=== PATIENT | female | born 1935 | race Caucasian/White ===

== ENCOUNTER 2019-09-12 11:19 | Outpatient (CLI) | payer MEDICARE, SELFPAY ==
--- NOTE | ~2019-09-12 | XR_ITS ---
XR lumbar spine min 4V DATE: 09/12/2019 11:42 INDICATION: Low back pain TECHNIQUE: AP, lateral, bilateral oblique views, coned lateral lumbosacral view COMPARISON: None FINDINGS: There is mild to moderate rotatory levoscoliosis of the lumbar spine. There is severe degenerative disc disease at L2-3, with minimal retrolisthesis There is severe degenerative disc disease at L5-S1. There is moderate degenerative disc disease at L3-4 and L4-5. There is grade 1 anterolisthesis at L3-4 and L4-5. No fracture or bone destruction or spondylolisthesis is evident. There is prominent degenerative brito ge at the apophyseal joints of the lumbar and lumbosacral spine. The sacroiliac joints are unremarkable. There is a very prominent amount fecal material throughout the rectum and colon. IMPRESSION: Rotatory levoscoliosis of the lumbar spine Multilevel degenerative disc disease Reviewed, dictated and finalized at location A.
--- NOTE | ~2019-09-12 | XR_ITS ---
XR hip BI 2V w AP pelvis DATE: 09/12/2019 11:42 INDICATION: Right hip pain. No injury. TECHNIQUE: AP pelvis. AP and lateral views of each hip. COMPARISON: None FINDINGS: No pelvic fracture or bone destruction. The pubic symphysis and sacroiliac joints are intac t. No fracture, dislocation, avascular necrosis or bone destruction of either hip is detected. Hip joint spaces are symmetric and relatively preserved. There is bilateral of fecal material within the colon. IMPRESSION: No significant abnormality of the hips Reviewed, dictated and finalized at location A.
== END 2019-09-12 11:20 | disposition home or self-care (01) ==
PROVIDERS: PCP Family Medicine; Visit Provider Family Medicine
DX: G89.29 Other chronic pain (principal); M25.551 Pain in right hip; M25.552 Pain in left hip; M54.5 Low back pain; M41.86 Other forms of scoliosis, lumbar region
CPT/HCPCS: 72110; 73521

== ENCOUNTER 2019-10-30 11:00 | Outpatient (RCR) | payer MEDICARE, SELFPAY ==
--- NOTE | 2019-10-09 15:48 | PTOPEVAL ---
PHYSICAL THERAPY EVALUATION AND PLAN OF CARE 10-09-2019 The PT evaluation was completed for the diagnosis of back and R hip pain. Her plan of treatment is scheduled for 2x/week for 3 weeks. Thank you for referring Mrs. Fontanez to [facility]. Please review, sign, date and return this plan of care [facility]. I agree with and certify that the following plan of care is medically necessary. Referring Physician Date Attending Provider: Michael Martinez MD *PT Outpatient Evaluation Start: 10/09/19 14:45 Document 10/09/19 14:35 BEE (Rec: 10/09/19 15:48 BEE [id number]) Therapy Assessment Status Assessment Status Assessment Status Evaluation Outpatient Past Medical History Past Medical History Source of Past Medical History Patient Neurological History Hx Other Neurological Disorders Yes: vertigo- get up out bed too fast, turn head too fast Cardiovascular History Hx Hypercholesterolemia Yes: meds Hx Other Cardiac Disorders Yes: aortic valve replacement Respiratory History Hx Respiratory Disorders No Significant History Gastrointestinal History Hx Other Gastrointestinal Disorders Yes: take meds for constipation Genitourinary History Hx Genitourinary Disorders No Significant History Musculoskeletal History Hx Back Pain Yes: injections 2016- pain Hx Orthopedic Surgery Yes: B carpal tunnel surgery Reproductive History Hx Hysterectomy Yes Evaluation Information Problem Diagnosis low back pain and R hip pain Onset August 21 2019 Subjective Information gradual increase in pain, Query Text:As Reported By Patient/ without any recent injury; Family increase after lifting, yard work and more activity; Diagnostic Tests X-Rays For This Problem Yes: R hip-negative; lumbar- deg changes &rotary levoscoliosis Previous Treatments Previous Treatments For This Problem 2017 with injections, had PT for back; Prior Level of Function Activity Level (Last 3 Months) Occupation retired Activity of Daily Living Ability Independent Indoor/Home Mobility Independent Community Mobility Independent Stairs Ability Independent Functional Cognition (Planning, Shopping Independent , Taking Medications) Cooking Yes Cleaning Yes Laundry Yes Shopping Yes Driving Yes Home Setting Home Type House Living Situation With Spouse Mobility Assistive Devices (Used Last 3 None,Cane Months) Comment
--- NOTE | 2019-10-19 10:12 | PCPTNOTE ---
Patient called & cancelled scheduled appointment this date due to [ ]illness
--- NOTE | 2019-10-30 11:34 | PTOPEVAL ---
PHYSICAL THERAPY DISCHARGE 10-30-2019 has received 6 PT sessions, from October 08 to today, for the diagnosis of LBP. Compared to the initial evaluation: pain has decreased, is no longer having any back pain, and returned to doing all of her normal activities; strength of her hips and trunk have increased, but still has weakness of B hip abduction and extension motions; increased anterior hip flexibility B; has been educated on home exercise program, correct body mechanics and lifting. All of the goals were achieved, therefore, she will be discharged from PT at this time. Thank you for referring Jess Fontanez to [facility]. Please review, sign, date and return this discharge VITOR. I agree with and certify that the following plan of care is medically necessary. Referring Physician Date Attending Provider: Michael Martinez MD Document 10/30/19 11:02 BEE (Rec: 10/30/19 11:34 BEE [id number]) Subjective Information Jess reports: back feels Query Text:As Reported By Patient/ good, have been doing her Family exercises, has not been using the cane at all, is back to doing all of the usual things she does at home, feels like she is ready for discharge from therapy. Pain Assessment Timing of Pain Assessment Timing of Pain Assessment Assessment Pain Scale Pain Scale Used Numeric (1 - 10) Self Report Pain Assessment Right Hip(s) Reported Pain Level 0 Pain Frequency Chronic Pain Score Pain Score 0: Self Report Lower Extremity Range of Motion General Lower Extremity Range of Motion Gross Lower Extremity Range of Motion anterior hip -quad length with Comments supine and leg over edge of mat, knee flexion R 70'/L 75'; Lower Extremity Muscle Strength Testing General Lower Extremity Strength Gross Lower Extremity Strength recumbant stepper, level 2 resistance, 5 minutes for warm up with discussion of therapy ; - B UE lift: floor/waist 10# x 2 reps with correct technique ; -standing hip ext with 1 UE hold: R 10/ L 12 reps - side lying hip abduction: L to 0'/ R to 0' x 20 reps - supine bridge 10 reps, with butt barely clear the mat Gait Assessment Gait Assessment Ambulation Assistive Devices None Ambulation Destination In Corridor Ambulation Ability Independent Additional Ambulation Comments slight lateral motion of trunk to R and L with WB
== END 2019-11-06 14:28 | disposition home or self-care (01) ==
LOC: ANHPT 11:00
PROVIDERS: PCP Family Medicine; Visit Provider Orthopaedic Surgery
DX: M25.559 Pain in unspecified hip (principal)
CPT/HCPCS: 97110; 97161

== ENCOUNTER 2020-04-01 09:26 | Outpatient (CLI) | payer MEDICARE, SELFPAY ==
--- NOTE | ~2020-04-01 | MM_ITS ---
EXAMINATION: MM screening diandra BI w guerda HISTORY: Screening TECHNIQUE: Craniocaudal and mediolateral oblique 3-D tomosynthesis images were obtained and synthetic 2-D images were generated. CAD analysis was submitted and interpreted. COMPARISON: Breast composed of scattered areas of fibroglandular density. BREAST PARENCHYMAL COMPOSITION: Breast composed of scattered areas of fibroglandular density. FINDINGS: There is no evidence of suspicious mass, calcification, or architectural distortion to sugg est malignancy in either breast. There has been no suspicious interval change. IMPRESSION: 1. No mammographic evidence of malignancy. 2. Recommend routine screening mammography in one year. BI-RADS Category 1: Negative Reviewed, dictated and finalized at location A. 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
== END 2020-04-01 09:27 | disposition home or self-care (01) ==
LOC: ANHIMG 09:31
PROVIDERS: PCP Family Medicine; Visit Provider Obstetrics & Gynecology
DX: Z12.31 Encounter for screening mammogram for malignant neoplasm of breast (principal)
CPT/HCPCS: 77063; 77067

== ENCOUNTER → 2021-01-28 11:52 | Outpatient (CLI) | payer MEDICARE, SELFPAY ==
--- NOTE | ~2021-01-28 | XR_ITS ---
EXAMINATION: XR knee LT min 4V DATE: 01/28/2021 12:11 INDICATION: Left knee pain. TECHNIQUE: 4 views of left knee were obtained. COMPARISON: Left knee radiographs 12/20/2017 FINDINGS: Bone alignment is normal. No fracture. There is moderate osteoarthritis of medial and conte lofemoral compartments and mild osteoarthritis of lateral compartment. No knee joint effusion. IMPRESSION: 1. Moderate left knee osteoarthritis. Reviewed, dictated and finalized at location A. ENTER
== END ==
PROVIDERS: PCP Family Medicine; Visit Provider Family Medicine
DX: M17.12 Unilateral primary osteoarthritis, left knee (principal)
CPT/HCPCS: 73564

== ENCOUNTER 2021-05-06 10:18 | Outpatient (CLI) | payer MEDICARE, SELFPAY ==
--- NOTE | ~2021-05-06 | MM_ITS ---
EXAMINATION: MM screening diandra BI w guerda HISTORY: Screening TECHNIQUE: Craniocaudal and mediolateral oblique 3-D tomosynthesis images were obtained and synthetic 2-D images were generated. CAD analysis was submitted and interpreted. COMPARISON: Comparison to multiple prior studies sequentially, with oldest reviewed study dated 02/19. BREAST PARENCHYMAL COMPOSITION: There are scattered areas of fibroglandular density. FINDINGS: There is no evidence of suspicious mass, calcification, or architectural distortion to sugg est malignancy in either breast. There has been no suspicious interval change. IMPRESSION: 1. No mammographic evidence of malignancy. 2. Recommend routine screening mammography in one year. BI-RADS Category 1: Negative Reviewed, dictated and finalized at location A. 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
== END 2021-05-06 10:19 | disposition home or self-care (01) ==
PROVIDERS: PCP Family Medicine; Visit Provider Family Medicine
DX: Z12.31 Encounter for screening mammogram for malignant neoplasm of breast (principal)
CPT/HCPCS: 77063; 77067

== ENCOUNTER 2022-09-04 14:50 | Outpatient (CLI) | payer MEDICARE, SELFPAY ==
--- NOTE | ~2022-09-04 | MM_ITS ---
EXAMINATION: MM screening diandra BI w guerda HISTORY: Screening mammogram TECHNIQUE: Craniocaudal and mediolateral oblique 3-D tomosynthesis images were obtained and synthetic 2-D images were generated. CAD analysis was submitted and interpreted. COMPARISON: May 06, 2021, April 01, 2020, March 20, 2019 bilateral screening mammogram exam inations BREAST PARENCHYMAL COMPOSITION: There are scattered areas of fibroglandular density. FINDINGS: Scattered bilateral benign calcifications. There is no evidence of suspicious mass, calcifi cation, or architectural distortion to suggest malignancy in either breast. There has been no suspici ous interval change. IMPRESSION: 1. No mammographic evidence of malignancy. 2. Recommend routine screening mammography in one year. BI-RADS Category 1: Negative Reviewed, dictated and finalized at location A.
== END 2022-09-04 14:51 | disposition home or self-care (01) ==
LOC: ANHIMG 14:53
PROVIDERS: PCP Family Medicine; Visit Provider Obstetrics & Gynecology
DX: Z12.31 Encounter for screening mammogram for malignant neoplasm of breast (principal)
CPT/HCPCS: 77063; 77067

== ENCOUNTER 2022-12-29 11:44 | Inpatient (IN) | payer MEDICARE, SELFPAY ==
[2022-12-29] VITALS (31 sets, daily range): BP systolic 125–184; BP diastolic 51–87; PULSE 57–86; RESP 12–24; TEMP 36.4–36.7; O2SAT 91–100; BMI 34.8
--- NOTE | ~2022-12-29 | XR_ITS ---
EXAMINATION: XR chest 2V DATE: 12/29/2022 13:03 INDICATION: Shortness of breath. TECHNIQUE: Frontal and lateral views of the chest were obtained. COMPARISON: None. FINDINGS: There are Harley B-lines, consistent with mild pulmonary edema. There are tiny pleural effu sions. No pneumothorax. Cardiomegaly is noted. There are changes of aortic valve replacement. There i s an old healed fracture of left clavicle. IMPRESSION: 1. Mild pulmonary edema with tiny pleural effusions. 2. Cardiomegaly. Reviewed, dictated and finalized at location A.
--- NOTE | 2022-12-29 11:45 | ECG_ITS ---
Measurements Intervals [place] Rate: 81 P: [place]: 0 QRS: -50 QRSD: 151 T: 115 QT: 432 QTc: 504 Interpretive Statements ATRIAL FIBRILLATION LEFT AXIS DEVIATION [QRS AXIS < -30] LEFT BUNDLE BRANCH BLOCK [120+ ms QRS DURATION, 80+ ms Q/S IN V1/V2, 85+ ms R IN I/aVL/V5/V6] NO PREVIOUS ECG AVAILABLE FOR COMPARISON Electronically Signed On 12-29-2022 16:28:51 CDT by Shay Ontiveros M.D.
[2022-12-29 12:14] LABS: Basophils Percent Auto 0.7 % (0.2-1.2); Eosinophils Absolute Auto 0.1 K/mm3 (0-0.3); Eosinophils Percent Auto 1.5 % (0-4.4); Hematocrit 39.5 % (37.0-47.0); Hemoglobin 12.5 g/dL (12.0-15.0); Lymphocytes Absolute Auto 1.24 K/mm3 (0.9-3.2); Lymphocytes Percent Auto 20.9 % (18.3-44.2); Mean Corpuscular HGB Conc 31.6 g/dl (32-36); Mean Corpuscular Hemoglobin 31.2 pg (26-34); Mean Corpuscular Volume 98.5 fl (80-100); Monocytes Absolute Auto 0.5 K/mm3 (0.1-0.6); Monocytes Percent Auto 8.6 % (2.6-8.5); Neutrophils Absolute Auto 4.1 K/mm3 (1.3-6.7); Neutrophils Percent Auto 68.3 % (45.5-73.1); Platelet Count Result 152 k/mm3 (150-375); Red Blood Count 4.01 M/mm3 (4.2-5.4); Red Cell Distribution Width 14.3 % (11.5-14.5); White Blood Count 5.9 K/mm3 (4.5-10.0)
[2022-12-29 12:23] LABS: Alanine Aminotransferase 31 U/L (6-35); Albumin Level 4.5 g/dL (3.5-5.1); Alkaline Phosphatase 61 U/L (38-126); Anion Gap 5 mmol/L (8-16); Aspartate Amino Transferase 37 U/L (14-36); Blood Urea Nitrogen 17 mg/dL (7-17); Calcium 8.9 mg/dL (8.4-10.2); Carbon Dioxide 30 mmol/L (22-30); Chloride 103 mmol/L (98-107); Estimated CRCL calculation 59 ml/min; Estimated Glomerular Filt Rate > 60; Glucose 112 mg/dL (65-110); Potassium 3.7 mmol/L (3.4-5.0); Sodium 138 mmol/L (137-145)
[2022-12-29 14:07] LABS: NT Pro B Type Natriuretic Pept 2790 pg/mL (19.9-100); Troponin I < 0.012 ng/mL (0.000-0.034)
--- NOTE | 2022-12-29 14:53 | ED.SOB ---
HPI - SOB/Dyspnea General Chief Complaint: Shortness of Breath/Dyspnea Stated Complaint: sob Time Seen by Provider: 12/29/22 14:25 History of Present Illness HPI Narrative: Patient is an 87-year-old female with a history of aortic valve replacement, A-fib, hypertension, hypothyroidism, hyperlipidemia presenting with shortness of breath. Patient states that for the last 3 days or so she has had worsening shortness of breath especially when she lays down. States that she has been barely able to sleep and has had to sleep in a recliner. States that her legs have also been more swollen and they do not seem to be going down. She saw her PCP today who advised that she come in for evaluation. She denies chest pain, palpitations. No fevers, nasal congestion, cough, abdominal pain, nausea or vomiting, diarrhea. Related Data Home Medications Medication Instructions Recorded Confirmed aspirin 81 mg tablet,delayed 81 mg PO DAILY 02/02/19 12/29/22 release (Adult Aspirin Regimen) calcium carbonate 600 mg-vitamin 600 cap PO DAILY 02/27/19 12/29/22 D3 12.5 mcg (500 unit) capsule (Calcium 600 with Vitamin D3) loratadine 10 mg tablet (Allergy 10 mg PO DAILY PRN allergy symptoms 09/11/19 12/29/22 Relief (loratadine)) multivitamin (Daily Multi-Vitamin 1 tablet PO DAILY 09/20/19 12/29/22 tablet) omega-3 fatty acids 1,000 mg 1,200 mg PO DAILY 09/20/19 12/29/22 capsule (Fish Oil Concentrate) melatonin 3 mg capsule 3 mg PO QHS PRN Insomnia 07/31/20 12/29/22 famotidine 20 mg tablet 20 mg PO HS 12/29/22 12/29/22 Allergies Allergy/AdvReac Type Severity Reaction Status Date / Time nitrofurantoin Allergy Unknown Unknown Verified 12/29/22 13:44 phenazopyridine Allergy Unknown Unknown Verified 12/29/22 13:44 Review of Systems Review of Systems: All systems reviewed & are unremarkable except as noted in HPI and below PMFSH Past Medical History Medical History Acute gastritis Acute non-recurrent maxillary sinusitis Allergic conjunctivitis Anxiety At high risk for falls At moderate risk for fall BMI 36.0-36.9,adult BMI 38.0-38.9,adult Breast cancer screening by mammogram mammogram normal 05/06/2021. Normal mammogram 09/04/2022. Chronic hip pain, bilateral Chronic insomnia Chronic pain of left knee X-ray of the left knee revealed moderate osteoarthritis 01/28/2021 Dietary counseling Edema, peripheral Exposure to COVID-19 virus Frequent urination High cholesterol Hypothyroidism Low back pain Obesity (BMI 35.0-39.9 without comorbidity) Osteoarthritis of left knee Osteoarthritis of lumbar spine Overactive bladder Shortness of Breath Chest x-ray 12/29/2022 with pulmonary edema and mild effusions. Urinary frequency volume chart completed UTI (urinary tract infection) Surgical History Surgical History Aortic valve replaced H/O: hysterectomy History of carpal tunnel surgery History of open heart surgery Hx of tubal ligation S/P coronary artery stent placement Family History Family History Father Hypertension Family history of elevated blood lipids, Onset Age: 83 Patient's father is , Onset Age: 82 Family history of cardiovascular disease Family history of Parkinson's disease Mother Hypertension Family history of elevated blood lipids Patient's mother is Family history of malignant neoplasm, Onset Age: 68 Sibling Patient's sister is , Onset Age: 85 Patient's brother is , Onset Age: 87 Family history of cardiovascular disease, Onset Age: 86 Family history of chronic obstructive pulmonary disease Other Family history of arthritis Social History Social History Smoking status: Never smoker Second hand tobacco smoke exposure: No Alcoh
[2022-12-29] MEDS: FUROSEMIDE INJ 40 MG/4 ML VIAL IV PUSH (15:35)
--- NOTE | 2022-12-29 17:55 | PC.NURSE ---
This patient, Jess Fontanez, was admitted to Medical Room 340-01. Patient/family oriented to hospital policies and general routines including ID bracelet, bed and alarms, visiting hours, pain management, procedures, bathroom and other care routines, personal items, smoking policy, room service/diet, and visiting hours. Information on how to activate the Rapid Response Team has been discussed. Patient/Family are encouraged to report perceived risks to care and to ask questions if they do not understand what they are told or what they should do.
--- NOTE | 2022-12-29 18:33 | PM.IMHP ---
H&P: HPI History of Present Illness Date/Time: 12/29/22 18:33 Chief Complaint: SOB, Swelling Narrative: 87-year-old female presents here with shortness of breath while lying flat and BLE swelling with PMH of CAD, anxiety, insomnia, hypothyroidism, osteoarthritis, and atrial fibrillation (not on anti-coagulation). Patient reports she has been unable to lie flat without shortness of breath at night for the last 2-3 nights with subsequent insomnia. she also noted bilateral lower extremity swelling over the last few days. No medications taken for symptoms at home. No previous history of heart failure. 5 lbs of weight gain since last visit on 08/13/22 per PCP note. Patient sees a bioinformatics associate every 6 months, next appointment is on 01/05/2023. Follows with cardiology for AFib, CAD with single-vessel disease requiring PTCA and stenting, and aortic valve replacement in 2019 due to stenosis. No recent medications added or changed. No changes in her diet. No redness or tenderness to her lower extremities. History obtained from patient, ED provider report, and chart review. Review of Systems Review of Systems: she denies URI symptoms, fever, chills, palpitations, chest pain, shortness of breath with activity, cough or congestion. All systems reviewed & are unremarkable except as noted in HPI and below PMFSH Past Medical History Medical History (Updated 12/29/22 @ 18:35 by Carol Green, ALYSE) Acute gastritis Acute non-recurrent maxillary sinusitis Allergic conjunctivitis Anxiety At high risk for falls At moderate risk for fall BMI 36.0-36.9,adult BMI 38.0-38.9,adult Breast cancer screening by mammogram mammogram normal 05/06/2021. Normal mammogram 09/04/2022. Chronic hip pain, bilateral Chronic insomnia Chronic pain of left knee X-ray of the left knee revealed moderate osteoarthritis 01/28/2021 Dietary counseling Edema, peripheral Exposure to COVID-19 virus Frequent urination High cholesterol Hypothyroidism Low back pain Obesity (BMI 35.0-39.9 without comorbidity) Osteoarthritis of left knee Osteoarthritis of lumbar spine Overactive bladder Shortness of Breath Chest x-ray 12/29/2022 with pulmonary edema and mild effusions. Urinary frequency volume chart completed UTI (urinary tract infection) Surgical History Surgical History Aortic valve replaced H/O: hysterectomy History of carpal tunnel surgery History of open heart surgery Hx of tubal ligation S/P coronary artery stent placement Family History Family History Father Hypertension Family history of elevated blood lipids, Onset Age: 83 Patient's father is , Onset Age: 82 Family history of cardiovascular disease Family history of Parkinson's disease Mother Hypertension Family history of elevated blood lipids Patient's mother is Family history of malignant neoplasm, Onset Age: 68 Sibling Patient's sister is , Onset Age: 85 Patient's brother is , Onset Age: 87 Family history of cardiovascular disease, Onset Age: 86 Family history of chronic obstructive pulmonary disease Other Family history of arthritis Social History Social History Smoking status: Never smoker Second hand tobacco smoke exposure: No Alcohol intake: never Substance use: never Substance use type: does not use Lack of Transportation: No Lack of Food: Never True Current Housing: I Have Housing Concerned About Future Housing: No Difficulty Paying Gas/Electric Bills: No Difficulty Paying for Meds: No Currently Unemployed: No Education: High School Diploma/GED Difficulty w/ Childcare or Family Care: No Spiritual care concerns: No Meds Home Medications and Allergies Home Medications Medication Instructions Record
[2022-12-29] MEDS: TOLTERODINE TARTRATE 2 MG TABLET PO (20:08)
[2022-12-29] MEDS: ATORVASTATIN 20 MG TABLET PO (20:08)
[2022-12-29] MEDS: FAMOTIDINE 20 MG TABLET PO (20:09)
[2022-12-29] MEDS: MELATONIN 3 MG TABLET PO (21:35)
[2022-12-30] VITALS (9 sets, daily range): BP systolic 98–147; BP diastolic 55–61; PULSE 55–72; RESP 16–20; TEMP 36.2–36.6; O2SAT 97–99
--- NOTE | 2022-12-30 | ECHO_ITS ---
Patient Info Name: Jess Fontanez Age: 87 years : 1935 Gender: Female Ht: 65 in Wt: 209 lbs BSA: 2.12 m2 HR: 58 bpm BP: 147 / 55 mmHg Heart Rhythm: Atrial Fibrillation Technical Quality: Good Exam Date: 12/30/2022 9:01 AM Exam Location: [facility] Pulmonary Patient Status: Outpatient Admit Date: 12/29/2022 Staff Ordering Physician: Carol Green APRN Loft Worker Apprentice: Clementine Del Toro RDCS Attending Provider: Pb Salas MD Referring Physician: Norma SALINAS; Exam Type: CA echo doppler color flow Study Info Indications - pul edema SOB, ELEVATED BNP Complete two-dimensional, color flow and Doppler transthoracic echocardiogram is performed. Summary 1. Complete two-dimensional, color flow and Doppler transthoracic echocardiogram is performed. 2. Left ventricular chamber dimension is mildly enlarged. 3. Left ventricular systolic function is mildly reduced, estimated at 45-50%. 4. There is moderately increased left ventricular wall thickness. 5. The left ventricular diastolic function is abnormal. 6. Right ventricular chamber dimension is mildly enlarged. 7. Left atrial chamber dimension is severely enlarged. 8. Right atrial chamber dimension is moderately enlarged. 9. 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 10. There is mild to moderate regurgitation of the bioprosthetic aortic valve. 11. There is mild to moderate mitral valve regurgitation. 12. The mitral valve annulus is mildly calcified. 13. There is mild tricuspid valve regurgitation. 14. Mild pulmonary hypertension, estimated pulmonary arterial systolic pressure is 38 mmHg. 15. There is mild pulmonic regurgitation. Left Ventricle Left ventricular chamber dimension is mildly enlarged. Left ventricular systolic function is mildly reduced, estimated at 45-50%. There is moderately increased left ventricular wall thickness. The left ventricular diastolic function is abnormal. Right Ventricle Right ventricular chamber dimension is mildly enlarged. Right ventricular systolic function is normal. Left Atria Left atrial chamber dimension is severely enlarged. Right Atria Right atrial chamber dimension is moderately enlarged. 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 There is mild to moderate regurgitation of the bioprosthetic aortic valve. Pulmonic Valve The pulmonic valve is normal. There is no pulmonic valve stenosis. There is mild pulmonic regurgitation. Mitral Valve There is no mitral valve stenosis. There is mild to moderate mitral valve regurgitation. The mitral valve annulus is mildly calcified. Tricuspid Valve The tricuspid valve leaflets are normal. There is no significant tricuspid valve stenosis. There is mild tricuspid valve regurgitation. Mild pulmonary hypertension, estimated pulmonary arterial systolic pressure is 38 mmHg. Pericardium/Pleural The pericardium appears normal. There is no pericardial effusion. Inferior Vena Cava Dilated inferior vena cava with <50% collapse upon inspiration consistent with elevated right atrial pressure, 15 mmHg. Aorta The aortic root size at the sinus of Valsalva is normal. Left Ventricular Outflow Tract Name Value Normal LVOT 2D
[2022-12-30] MEDS: LEVOTHYROXINE SODIUM 50 MCG TABLET PO (05:42)
[2022-12-30 06:03] LABS: Hematocrit 37.6 % (37.0-47.0); Immature Platelet Fraction Pct 5.2 % (0.9-11.2); Mean Corpuscular HGB Conc 31.9 g/dl (32-36); Mean Corpuscular Hemoglobin 30.8 pg (26-34); Mean Corpuscular Volume 96.4 fl (80-100); Mean Platelet Volume 11.2 fl (7.4-10.4); Platelet Count Result 135 k/mm3 (150-375); Red Cell Distribution Width 14.3 % (11.5-14.5); White Blood Count 4.5 K/mm3 (4.5-10.0)
[2022-12-30 06:10] LABS: Alanine Aminotransferase 27 U/L (6-35); Albumin Level 3.9 g/dL (3.5-5.1); Alkaline Phosphatase 54 U/L (38-126); Anion Gap 5 mmol/L (8-16); Aspartate Amino Transferase 30 U/L (14-36); Bilirubin,Total 1.9 mg/dL (0.2-1.3); Blood Urea Nitrogen 17 mg/dL (7-17); Calcium 8.4 mg/dL (8.4-10.2); Carbon Dioxide 31 mmol/L (22-30); Chloride 103 mmol/L (98-107); Estimated CRCL calculation 58 ml/min; Estimated Glomerular Filt Rate > 60; Glucose 86 mg/dL (65-110); Magnesium 2.1 mg/dL (1.6-2.3); Phosphorus 3.4 mg/dL (2.5-4.5); Potassium 3.3 mmol/L (3.4-5.0); Sodium 139 mmol/L (137-145)
[2022-12-30] MEDS: TOLTERODINE TARTRATE 2 MG TABLET PO ×2 (08:17→20:03)
[2022-12-30] MEDS: ENOXAPARIN 40 MG/0.4 ML SYRINGE SUB-Q (08:17)
[2022-12-30] MEDS: FUROSEMIDE INJ 40 MG/4 ML VIAL IV PUSH ×2 (08:17→16:13)
[2022-12-30] MEDS: OMEGA 3 POLYUNSAT FATTY ACIDS 1 GM CAP PO (08:17)
[2022-12-30] MEDS: MULTIVITAMINS THERAPEUTIC TAB (*BKC) 1 TABLET PO (08:17)
[2022-12-30] MEDS: ASPIRIN 81 MG ENTERIC TABLET PO (08:17)
[2022-12-30] MEDS: POTASSIUM CHLORIDE 20 MEQ PACKET (FOR LIQUID) 40 MEQ PO (12:38)
--- NOTE | 2022-12-30 15:27 | PM.CNCAR ---
Assessment and Plan Assessment and plan (1) Acute congestive heart failure: Code(s): I50.9 - Heart failure, unspecified Status: Acute Assessment and Plan: With probably a combination of systolic heart failure as well as valvular dysfunction including moderate MR and AI. Will give an additional dose of furosemide 40 mg IV x1 this evening as well as tomorrow morning. Anticipate discharge tomorrow. 2D echocardiogram Doppler is ordered will be reviewed. Depending on these results, likely DC home for follow-up with her primary batter depositor. (2) Aortic insufficiency: Code(s): I35.1 - Nonrheumatic aortic (valve) insufficiency Status: Acute Assessment and Plan: At least moderate status post previous SAVR (3) Mitral regurgitation: Code(s): I34.0 - Nonrheumatic mitral (valve) insufficiency Status: Acute Assessment and Plan: Moderate (4) CAD (coronary artery disease): Code(s): I25.10 - Atherosclerotic heart disease of [place] coronary artery without angina pectoris Status: Acute Assessment and Plan: No clear anginal some. Continue aspirin and statin (5) Atrial fibrillation: Code(s): I48.91 - Unspecified atrial fibrillation Status: Acute Assessment and Plan: Not on anticoagulation for uncertain reasons. She possibly has had a previous left atrial appendage excision but I do not have the surgical report to review at this point. She remains on aspirin. Ultimately will defer to her primary batter depositor History of Present Illness History of Present Illness Consult date/time: 12/30/22 15:27 Requesting physician: Carol Green APRN Consult reason: congestive heart failure Reason For Visit: decompensated chf Narrative: Reason for consultation: CHF Requesting provider: Carol Green Date of service 12/30/2022: History patient is an 87-year-old female who has a history of atrial fibrillation, CAD, aortic stenosis status post aortic valve replacement (surgically). She has a history of moderate aortic and mitral regurgitation. She came to hospital because of worsening shortness of breath. She states she has been short of breath for past 2-3 days. Her symptoms started a couple weeks ago in fact but over the past couple of days they worsen to the point that she had swelling, orthopnea as well as paroxysmal nocturnal dyspnea. No palpitations, syncope, presyncope, chest pain. She could not get in to see her primary batter depositor who is Dr. Nogueira and therefore she came to the hospital for further evaluation. She has received diuretics and is feeling better. Review of Systems Review of Systems: All systems reviewed & are unremarkable except as noted in HPI and below Constitutional: Constitutional: Denies body ache(s) Eyes: Eyes: Denies blurry vision ENT: Reports Normal hearing present Cardiovascular: Cardiovascular: Denies chest pain and Reports leg edema Respiratory: Respiratory: Reports dyspnea Gastrointestinal: Gastrointestinal: Denies abdominal pain Genitourinary: Genitourinary: Denies hematuria Musculoskeletal: Musculoskeletal: Denies back pain Integumentary/Breasts: Skin/Breast: Denies erythema Neurologic: Denies Abnormal speech present Psychiatric: Psychiatric: Denies behavioral changes Endocrine: Endocrine: Denies excessive sweating Hematologic/Lymphatic: Hematologic/Lymphatic: Denies easy bleeding Allergic/Immunologic: Allergic/Immunologic: Denies GI upset with certain foods PMFSH Past Medical History Medical History Acute gastritis Acute non-recurrent maxillary sinusitis Allergic conjunctivitis Anxiety At high risk for falls At moderate risk for fall BMI 36.0-36.9,adult BMI 38.0-38.9,adult Breast cancer screening by mammogram mammogram normal 05/06/2021. Normal mammogram 09/04/2022. Chronic hip pain, bilateral Chronic insomnia Chronic pain of
--- NOTE | 2022-12-30 16:01 | PM.IMPN ---
Progress Note: A&P Assessment and Plan (1) Acute congestive heart failure: Code(s): I50.9 - Heart failure, unspecified Status: Acute (2) Shortness of Breath: Code(s): R06.02 - Shortness of breath Status: Acute (3) Edema, peripheral: Code(s): R60.9 - Edema, unspecified Status: Acute Plan Problem List 1. Acute CHF prior ECHO in 12/2021 EF 55% repeat ECHO pending CXR showed cardiomegaly and pulm edema continue diuresis per cardiology possible discharge tomorrow per cards cardiology following Atrial fibrillation Hr in 50 and 60s not on rate control meds cardiology following Aortic insufficiency ECHo pending cardiology following Chronic Conditions - Continue daily aspirin, atorvastatin, calcium supplement, famotidine, loratadine p.r.n., melatonin p.r.n., multivitamin, eye drop for allergies, fish oil and tolterodine. - reassess TSH w/reflex, last 3.16 on 08/05/22. Diet: Heart healthy GI Prophylaxis: Continue home famotidine DVT Prophylaxis: SCDs and Lovenox 40 Lines: pIV Code Status: Full Code Subjective Date/time seen: 12/30/22 16:01 Interval history: patient comfortable at bedside and not on oxygen. Cardiology recommends diuresis and possible discharge tomorrow Review of Systems Review of Systems: she denies URI symptoms, fever, chills, palpitations, chest pain, shortness of breath with activity, cough or congestion. All systems reviewed & are unremarkable except as noted in HPI and below Exam Narrative: Patient sitting on the side of her hospital bed. No visitors at bedside. Const: General: comfortable and no acute distress HENMT: Mouth: Yes moist mucous membranes Eyes: General: appearance normal, both eyes and all related structures Sclera: sclerae normal Pupils: Equal, round and reactive pupils present Resp: Effort & Inspection: normal respiratory effort Auscultation: clear to auscultation bilaterally Other: No crackles or wheezes on exam. Cardio: Rate: regular rate Rhythm: abnormal rhythm Other: S1-S2 present with whooshing murmur, grade 2. GI: Auscultation: normal bowel sounds Skin: General skin exam: normal color Other: multiple Telangiectasia noted to BLE. 1+ edema, no pitting to BLE. Neuro: Cranial nerves: Yes Equal, round and reactive pupils present Speech: normal speech Motor exam (neuro): 5/5 motor strength present throughout Sensory Exam: normal sensation Other: A/Ox4. Extrem: General: edema Other: 1+, no pitting to BLE. Psych: Mental Status: mental status grossly normal Affect: normal affect Other: good insight and judgment, pleasant. Objective Data Vital Signs Vital Signs: Vital Signs - 24 hr 12/29/22 16:03 12/29/22 16:15 12/29/22 16:30 Temperature Pulse Rate 85 60 77 Respiratory Rate 24 H 17 17 Blood Pressure Pulse Oximetry 95 96 97 Oxygen Delivery 12/29/22 16:45 12/29/22 17:00 12/29/22 17:15 Temperature Pulse Rate 71 68 77 Respiratory Rate 19 19 16 Blood Pressure Pulse Oximetry 97 97 97 Oxygen Delivery 12/29/22 18:34 12/29/22 20:00 12/29/22 20:20 Temperature 97.5 F L 97.5 F L Pulse Rate 68 68 83 Respiratory Rate 18 18 16 Blood Pressure 145/58 H 125/51 L Pulse Oximetry 99 99 97 Oxygen Delivery Room Air 12/29/22 20:00 12/30/22 00:00 12/30/22 04:00 Temperature Pulse Rate 57 L 60 55 L Respiratory Rate Blood Pressure Pulse Oximetry Oxygen Delivery 12/30/22 05:13 12/30/22 08:30 12/30/22 14:56 Temperature 97.4 F L 97.9 F Pulse Rate 58 L 67 Respiratory Rate 16 20 Blood Pressure 147/55 H 127/57 L Pulse Oximetry 97 99 Oxygen Delivery Room Air Intake/Output Intake/Output: Intake & Output 12/27/22 12/28/22 12/29/22 12/30/22 23:59 23:59 23:59 23:59 Intake Total 360 710 Output Total 1350 1950 Balance -990 1240 Meds/Results Medications: Active Medi
[2022-12-30] MEDS: FAMOTIDINE 20 MG TABLET PO (20:03)
[2022-12-30] MEDS: ATORVASTATIN 20 MG TABLET PO (20:03)
[2022-12-30] MEDS: MELATONIN 3 MG TABLET PO (22:07)
[2022-12-31] VITALS: PULSE 65
[2022-12-31 04:00] VITALS: PULSE 66
[2022-12-31 05:49] LABS: Basophils Absolute Auto 0.1 K/mm3 (0.0-0.1); Eosinophils Absolute Auto 0.3 K/mm3 (0-0.3); Eosinophils Percent Auto 5.2 % (0-4.4); Hematocrit 39.2 % (37.0-47.0); Hemoglobin 12.6 g/dL (12.0-15.0); Immature Granulocyte Absolute 0.01 K/mm3 (0.00-0.031); Immature Granulocyte Percent A 0.2 % (0-0.5); Lymphocytes Absolute Auto 1.57 K/mm3 (0.9-3.2); Lymphocytes Percent Auto 31.3 % (18.3-44.2); Mean Corpuscular HGB Conc 32.1 g/dl (32-36); Mean Corpuscular Hemoglobin 31.3 pg (26-34); Mean Corpuscular Volume 97.5 fl (80-100); Mean Platelet Volume 11.1 fl (7.4-10.4); Monocytes Absolute Auto 0.6 K/mm3 (0.1-0.6); Monocytes Percent Auto 11.4 % (2.6-8.5); Neutrophils Absolute Auto 2.6 K/mm3 (1.3-6.7); Neutrophils Percent Auto 50.9 % (45.5-73.1); Platelet Count Result 145 k/mm3 (150-375); Red Blood Count 4.02 M/mm3 (4.2-5.4); Red Cell Distribution Width 14.2 % (11.5-14.5)
[2022-12-31] MEDS: LEVOTHYROXINE SODIUM 50 MCG TABLET PO (05:51)
[2022-12-31 05:53] VITALS: BP 126/62; PULSE 60; RESP 16; TEMP 36.4; O2SAT 95
[2022-12-31 06:02] LABS: Alanine Aminotransferase 25 U/L (6-35); Albumin Level 3.8 g/dL (3.5-5.1); Alkaline Phosphatase 55 U/L (38-126); Anion Gap 7 mmol/L (8-16); Aspartate Amino Transferase 28 U/L (14-36); Bilirubin,Total 1.5 mg/dL (0.2-1.3); Blood Urea Nitrogen 19 mg/dL (7-17); Calcium 8.5 mg/dL (8.4-10.2); Carbon Dioxide 29 mmol/L (22-30); Chloride 102 mmol/L (98-107); Estimated CRCL calculation 51 ml/min; Estimated Glomerular Filt Rate > 60; Glucose 84 mg/dL (65-110); Potassium 3.2 mmol/L (3.4-5.0); Sodium 138 mmol/L (137-145)
--- NOTE | 2022-12-31 08:03 | P.CDI_ITS ---
CDI Query Clarification Request CHF noted in the assessment and plan. Elevated BNP on 12/29/22 lab work. Pulmonary edema noted on the chest xray. Patient presented with BLE edema, weight gain and orthopnea. Patient receiving Lasix. Please specify type and acuity of heart failure if known. * Acute * Chronic * Acute on Chronic * Unknown * Systolic * Diastolic * Combined Systolic and Diastolic * Unknown <Anaid العلي RN - Last Filed: 12/31/22 08:07> Clarified Diagnosis Clarified Diagnosis: Acute on chronic combination of systolic heart failure as well as valvular dysfunction <Faraz Garcia MD - Last Filed: 12/31/22 09:57>
[2022-12-31 08:53] VITALS: PULSE 66
[2022-12-31] MEDS: OMEGA 3 POLYUNSAT FATTY ACIDS 1 GM CAP PO (08:53)
[2022-12-31] MEDS: TOLTERODINE TARTRATE 2 MG TABLET PO (08:53)
[2022-12-31] MEDS: ENOXAPARIN 40 MG/0.4 ML SYRINGE SUB-Q (08:53)
[2022-12-31] MEDS: MULTIVITAMINS THERAPEUTIC TAB (*BKC) 1 TABLET PO (08:53)
[2022-12-31] MEDS: ASPIRIN 81 MG ENTERIC TABLET PO (08:53)
[2022-12-31] MEDS: FUROSEMIDE INJ 40 MG/4 ML VIAL IV PUSH (08:53)
--- NOTE | 2022-12-31 09:58 | PM.IMPN ---
Progress Note: A&P Assessment and Plan (1) Acute congestive heart failure: Code(s): I50.9 - Heart failure, unspecified Status: Acute (2) Shortness of Breath: Code(s): R06.02 - Shortness of breath Status: Acute (3) Edema, peripheral: Code(s): R60.9 - Edema, unspecified Status: Acute Plan Problem List 1. Acute CHF prior ECHO in 12/2021 EF 55% repeat ECHO CXR showed cardiomegaly and pulm edema POA Patient has received diuresis per cardiology Now compensated Per trim operator ?Will DC IV furosemide at this point.? Transition to oral furosemide 20 mg daily.? Potassium is low and will replace 40 mEq p.o. x1.? Will defer further uptitration her medical regimen to her primary trim operator who she sees next week.? Likely needs addition of a beta-becky? plus/minus Entresto if able to tolerate.? Atrial fibrillation Hr in 50 and 60s now on rate control meds cardiology following Aortic insufficiency cardiology following Hypokalemia 3.2 Repeated potassium chloride 40 mEq p.o. Chronic Conditions - Continue daily aspirin, atorvastatin, calcium supplement, famotidine, loratadine p.r.n., melatonin p.r.n., multivitamin, eye drop for allergies, fish oil and tolterodine. - reassess TSH w/reflex, last 3.16 on 08/05/22. Diet: Heart healthy GI Prophylaxis: Continue home famotidine DVT Prophylaxis: SCDs and Lovenox 40 Lines: pIV Code Status: Full Code Subjective Date/time seen: 12/31/22 09:58 Interval history: Patient feels better today, no shortness a breath at rest, patient also denies chest pain, palpitation, abdomen pain, nausea vomiting diarrhea dysuria headache, focal weakness Exam Narrative: GENERAL: Pleasant, in no acute distress. Well-nourished. - EYES: EOMI. Anicteric. - HENT: Moist mucous membranes. - LUNGS: Clear to auscultation bilaterally, no wheezing, rhonchi, or rales. - CARDIOVASCULAR: Regular rate and rhythm. No murmur. No JVD. - ABDOMEN: Soft, non-tender and non-distended. No palpable masses. - EXTREMITIES: No edema. Peripheral pulses 2+. Non-tender. - NEUROLOGIC: No focal neurological deficits. CN II-XII grossly intact. - PSYCHIATRIC: Awake, Alert and oriented x 3. Appropriate mood and affect. - SKIN: No rashes or lesions. Warm. - LYMPH: No cervical lymphadenopathy. Objective Data Vital Signs Vital Signs: Vital Signs - 24 hr 12/30/22 14:56 12/30/22 12:05 12/30/22 16:04 Temperature 97.9 F Pulse Rate 67 67 65 Respiratory Rate 20 Blood Pressure 127/57 L Pulse Oximetry 99 Oxygen Delivery 12/30/22 20:06 12/30/22 20:00 12/30/22 20:00 Temperature 97.1 F L Pulse Rate 72 66 72 Respiratory Rate 16 16 Blood Pressure 98/61 L Pulse Oximetry 97 97 Oxygen Delivery Room Air 12/31/22 00:00 12/31/22 04:00 12/31/22 05:53 Temperature 97.6 F Pulse Rate 65 66 60 Respiratory Rate 16 Blood Pressure 126/62 Pulse Oximetry 95 Oxygen Delivery Intake/Output Intake/Output: Intake & Output 12/28/22 12/29/22 12/30/22 12/31/22 23:59 23:59 23:59 23:59 Intake Total 360 1950 640 Output Total 1350 3550 800 Balance -990 -1600 -160 Meds/Results Medications: Active Medications Generic Name Dose Route Start Last Admin Trade Name Freq PRN Reason Stop Dose Admin Aspirin 81 mg 12/30/22 09:00 12/31/22 08:53 Aspirin 81 Mg Enteric Tablet PO 81 mg DAILY YANETH Administration Atorvastatin Calcium 20 mg 12/29/22 21:00 12/30/22 20:03 Atorvastatin 20 Mg Tablet PO 20 mg QHS YANETH Administration Calcium Carbonate 500 mg 12/30/22 09:00 12/31/22 08:53 Calcium/Vitamin D 500 Mg Tablet PO 500 mg DAILY YANETH Administration Enoxaparin Sodium 40 mg 12/30/22 09:00 12/31/22 08:53 Enoxaparin 40 Mg/0.4 Ml Syringe SUB-Q 40 mg DAILY YANETH Administration Famotidine 20 mg 12/29/22 21:00 12/30/22 20:03 Famotidine 20 Mg Tablet PO 20 mg HS YANETH Administration Fish Oil 1 gm 10
--- NOTE | 2022-12-31 10:22 | PM.PNCARD ---
Progress Note: A&P Assessment and Plan (1) Acute congestive heart failure: Code(s): I50.9 - Heart failure, unspecified Status: Acute Assessment and Plan: With probably a combination of systolic heart failure as well as valvular dysfunction including moderate MR and AI. Will DC IV furosemide at this point. Transition to oral furosemide 20 mg daily. Potassium is low and will replace 40 mEq p.o. x1. Will defer further uptitration her medical regimen to her primary camp tender who she sees next week. Likely needs addition of a beta-becky plus/minus Entresto if able to tolerate. (2) Aortic insufficiency: Code(s): I35.1 - Nonrheumatic aortic (valve) insufficiency Status: Acute Assessment and Plan: [id number] AI (3) Mitral regurgitation: Code(s): I34.0 - Nonrheumatic mitral (valve) insufficiency Status: Acute Assessment and Plan: [id number] (4) CAD (coronary artery disease): Code(s): I25.10 - Atherosclerotic heart disease of [place] coronary artery without angina pectoris Status: Acute Assessment and Plan: No clear anginal some. Continue aspirin and statin (5) Atrial fibrillation: Code(s): I48.91 - Unspecified atrial fibrillation Status: Acute Assessment and Plan: Not on anticoagulation for uncertain reasons. She possibly has had a previous left atrial appendage excision but I do not have the surgical report to review at this point. She remains on aspirin. Ultimately will defer to her primary camp tender. All this was discussed with the patient and she is comfortable with this current plan Subjective Date/time seen: 12/31/22 10:22 Interval history: 87-year-old admitted for CHF/shortness of breath Date of service 12/31/2022: She feels much better today. She has no chest pain or shortness breath. No swelling. Review of Systems Review of Systems: All systems reviewed & are unremarkable except as noted in HPI and below Constitutional: Constitutional: Denies body ache(s) and Denies excessive sweating Eyes: Eyes: Denies blurry vision ENT: Reports Normal hearing present Cardiovascular: Cardiovascular: Denies chest pain, Reports leg edema and Reports dyspnea Respiratory: Respiratory: Reports dyspnea Gastrointestinal: Gastrointestinal: Denies abdominal pain Genitourinary: Genitourinary: Denies hematuria Musculoskeletal: Musculoskeletal: Denies back pain Integumentary/Breasts: Skin/Breast: Denies erythema Neurologic: Reports Normal hearing present, Denies Abnormal speech present and Denies behavioral changes Psychiatric: Psychiatric: Denies behavioral changes Endocrine: Endocrine: Denies excessive sweating Hematologic/Lymphatic: Hematologic/Lymphatic: Denies easy bleeding Allergic/Immunologic: Allergic/Immunologic: Denies GI upset with certain foods Exam Narrative: Awake alert and oriented appears stated Const: General: comfortable and no acute distress HENMT: Face/Nose/Sinus: Normal nares present Mouth: Yes moist mucous membranes Eyes: General: appearance normal, both eyes and all related structures Sclera: sclerae normal Neck: Neck: supple and no JVD Carotids: no bruits Chest: Other: No reproducible chest wall pain to palpation Resp: Effort & Inspection: normal respiratory effort Auscultation: rales Cardio: Rate: regular rate Rhythm: abnormal rhythm irregularly irregular Heart sounds: Murmur heart sound present GI: Inspection: non-distended Auscultation: normal bowel sounds Skin: General skin exam: normal color and no rashes or lesions noted Neuro: Cranial nerves: Yes Normal hearing present Speech: normal speech and No Abnormal speech present Sensory Exam: No normal sensation Extrem: General: edema Other: Mild lower extremity edema Psych: Mental Status: mental status grossly normal Affect: normal affect Objective Data Vital Signs Vital
--- NOTE | 2022-12-31 11:20 | PM.DS ---
DS: Admitting Diagnosis Discharge Date Admitting Diagnosis (1) Acute congestive heart failure: ?Code(s): I50.9 - Heart failure, unspecified ?Status:?Acute (2) Shortness of Breath: ?Code(s): R06.02 - Shortness of breath ?Status:?Acute (3) Edema, peripheral: ?Code(s): R60.9 - Edema, unspecified ?Status:?Acute DS: Discharge Diagnosis Discharge Diagnosis (1) Acute congestive heart failure: Code(s): I50.9 - Heart failure, unspecified Status: Acute (2) Shortness of Breath: Code(s): R06.02 - Shortness of breath Status: Acute (3) Edema, peripheral: Code(s): R60.9 - Edema, unspecified Status: Acute DS: Summary Hospital Course Hospital Course: Per H&P, 87-year-old female presents here with shortness of breath while lying flat and BLE swelling with PMH of CAD, anxiety, insomnia, hypothyroidism, osteoarthritis, and atrial fibrillation (not on anti-coagulation).?Patient reports she has been unable to lie flat without shortness of breath at night for the last 2-3 nights with subsequent insomnia.? she also noted bilateral lower extremity swelling over the last few days.? No medications taken for symptoms at home.? No previous history of heart failure. 5 lbs of weight gain since last visit on 08/13/22 per PCP note. ? Patient sees a personnel director every 6 months, next appointment is on 01/05/2023.? Follows with cardiology for AFib, CAD with single-vessel disease requiring PTCA and stenting, and aortic valve replacement in 2019 due to stenosis. ? No recent medications added or changed.? No changes in her diet.? No redness or tenderness to her lower extremities. The following medical issues have been addressed during hospitalization 1. Acute CHF prior ECHO in 12/2021 EF 55% repeat ECHO ?2. Left ventricular chamber dimension is mildly enlarged. ? 3. Left ventricular systolic function is mildly reduced, estimated at 45-50%. ? 4. There is moderately increased left ventricular wall thickness. ? 5. The left ventricular diastolic function is abnormal. ? 6. Right ventricular chamber dimension is mildly enlarged. ? 7. Left atrial chamber dimension is severely enlarged. ? 8. Right atrial chamber dimension is moderately enlarged. ? 9. 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 ? 10. There is mild to moderate regurgitation of the bioprosthetic aortic valve. ? 11. There is mild to moderate mitral valve regurgitation. ? 12. The mitral valve annulus is mildly calcified. ? 13. There is mild tricuspid valve regurgitation. ? 14. Mild pulmonary hypertension, estimated pulmonary arterial systolic pressure is 38 mmHg. CXR showed cardiomegaly and pulm edema POA Patient has received diuresis per cardiology Now compensated Per personnel director ?Will DC IV furosemide at this point.? Transition to oral furosemide 20 mg daily.? Potassium is low and will replace 40 mEq p.o. x1.? Will defer further uptitration her medical regimen to her primary personnel director who she sees next week.? Likely needs addition of a beta-becky? plus/minus Entresto if able to tolerate.? will add low dose of entresto po and more Toprol succinate 25 mg daily p.o., continue Lasix 20 mg daily p.o. Atrial fibrillation Hr in 50 and 60s now on rate control meds cardiology following Aortic insufficiency cardiology following Hypokalemia 3.2 Repeated potassium chloride 40 mEq p.o. Continue potassium chloride 20 mg daily p.o. for 10 more days Patient need to see primary care doctor in 1 week Chronic Conditions - Continue daily aspirin, atorvastatin, calcium supplement, famotidine, loratadine p.r.n., melatonin p.r.n., multivitamin, eye drop for allergies, fish oil and tolterodine. - reassess TSH w/reflex, last 3.16 on 08/05/22. Time Spent with Patient Time attestation: Total time spent providing and/or coordi
[2022-12-31 12:00] VITALS: PULSE 68
[2022-12-31] MEDS: POTASSIUM CHLORIDE 20 MEQ PACKET (FOR LIQUID) 40 MEQ PO (12:46)
== END 2022-12-31 13:20 | disposition home or self-care (01) | DRG 291 ==
LOC: ANHED 14:56 → ANH3MED 16:00
PROVIDERS: Internal Medicine; Student in an Organized Health Care Education/Training Program; Admitting Provider Chiropractor; Emergency Provider Emergency Medicine; PCP Family Medicine; Visit Provider Hospitalist
DX: I11.0 Hypertensive heart disease with heart failure (principal); I50.23 Acute on chronic systolic (congestive) heart failure; I48.20 Chronic atrial fibrillation, unspecified; I25.10 Atherosclerotic heart disease of native coronary artery without angina pectoris; I08.0 Rheumatic disorders of both mitral and aortic valves; E87.6 Hypokalemia; E03.9 Hypothyroidism, unspecified; E78.5 Hyperlipidemia, unspecified; F41.9 Anxiety disorder, unspecified; M17.12 Unilateral primary osteoarthritis, left knee; E78.00 Pure hypercholesterolemia, unspecified; M47.816 Spondylosis without myelopathy or radiculopathy, lumbar region; N32.81 Overactive bladder; Z79.82 Long term (current) use of aspirin; Z95.2 Presence of prosthetic heart valve; Z95.5 Presence of coronary angioplasty implant and graft
CPT/HCPCS: 36415; 71046; 80053; 83735; 83880; 84100; 84443; 84484; 85025; 85027; 85055; 93005; 93306; 96372; 96374; 96376; 99285; A9270; G0378; J1650; J1940

== ENCOUNTER 2023-03-13 15:16 | Emergency (ER) | payer MEDICARE, SELFPAY ==
[2023-03-13 15:33] VITALS: BP 140/57; PULSE 88; RESP 16; TEMP 36.7; O2SAT 100
--- NOTE | 2023-03-13 15:36 | ECG_ITS ---
Measurements Intervals [place] Rate: 80 P: GA: 0 QRS: -43 QRSD: 148 T: 117 QT: 385 QTc: 444 Interpretive Statements ATRIAL FIBRILLATION MARKED LEFT AXIS DEVIATION [QRS AXIS < -30] LEFT BUNDLE BRANCH BLOCK [120+ ms QRS DURATION, 80+ ms Q/S IN V1/V2, 85+ ms R IN I/aVL/V5/V6] COMPARED TO ECG 12/29/2022 12:05:30 NO SIGNIFICANT CHANGES Electronically Signed On 03-14-2023 16:58:19 CERTIFIED REGISTERED LOCKSMITH by Fiorella Cedillo M.D.
--- NOTE | 2023-03-13 15:46 | ED.GENADULT ---
HPI - General Adult General Chief complaint: Extremity Injury, Lower Stated complaint: Fall Time Seen by Provider: 03/13/23 15:46 Source: patient, RN notes reviewed and old records reviewed Mode of arrival: ambulatory Limitations: no limitations History of Present Illness HPI narrative: 88-year-old female presents to the [facility] feeling dizzy lightheaded. States that she fell 1 week ago on [place]. Unsure of how she fell but denies hitting head or loss of consciousness. Since falling she has had pain in her right leg from her hip to her ankle has had increased swelling, ecchymosis. States pain is worse with movement when lying in stretcher she denies any pain. States that she is dizzy and lightheaded Has a history of AFib, currently in AFib. Reports calling her primary care provider on Wednesday was told not to worry about blood clots she is on Eliquis. Onset (ago): week(s) (1) Related Data Home Medications Medication Instructions Recorded Confirmed calcium carbonate 600 mg-vitamin 600 cap PO DAILY 02/27/19 03/13/23 D3 12.5 mcg (500 unit) capsule (Calcium 600 with Vitamin D3) loratadine 10 mg tablet (Allergy 10 mg PO DAILY PRN allergy symptoms 09/11/19 03/13/23 Relief (loratadine)) multivitamin (Daily Multi-Vitamin 1 tablet PO DAILY 09/20/19 03/13/23 tablet) omega-3 fatty acids 1,000 mg 1,200 mg PO DAILY 09/20/19 03/13/23 capsule (Fish Oil Concentrate) melatonin 3 mg capsule 3 mg PO QHS PRN Insomnia 07/31/20 03/13/23 famotidine 20 mg tablet 20 mg PO HS 12/29/22 03/13/23 apixaban 5 mg tablet (Eliquis) 5 mg PO BID 03/01/23 03/13/23 Allergies Allergy/AdvReac Type Severity Reaction Status Date / Time nitrofurantoin Allergy Unknown Unknown Verified 03/13/23 15:32 phenazopyridine Allergy Unknown Unknown Verified 03/13/23 15:32 Review of Systems Review of Systems: All systems reviewed & are unremarkable except as noted in HPI and below Constitutional: Constitutional: Reports no additional constitutional complaints Eyes: Eyes: Reports no additional eye complaints ENT: Reports system reviewed and no additional complaints, except as documented Cardiovascular: Cardiovascular: Reports no additional cardiovascular complaints, Denies chest pain and Denies dyspnea Respiratory: Respiratory: Reports no additional respiratory complaints, Denies chest congestion, Denies cough and Denies dyspnea Gastrointestinal: Gastrointestinal: Reports no additional gastrointestinal complaints, Denies abdominal pain, Denies nausea and Denies vomiting Musculoskeletal: Musculoskeletal: Reports as per HPI Integumentary/Breasts: Skin/Breast: Reports system reviewed and no additional complaints, except as docu Neurologic: Reports as per HPI, Reports dizziness, Denies numbness, Denies tingling and Reports other (Lightheaded) Psychiatric: Psychiatric: Reports no additional psychiatric complaints Allergic/Immunologic: Allergic/Immunologic: Reports no additional allergic/immunologic complaints PMFSH Past Medical History Medical History Acute congestive heart failure Acute gastritis Acute non-recurrent maxillary sinusitis Allergic conjunctivitis Anxiety At high risk for falls At moderate risk for fall Atrial fibrillation BMI 34.0-34.9,adult BMI 36.0-36.9,adult BMI 38.0-38.9,adult Breast cancer screening by mammogram mammogram normal 05/06/2021. Normal mammogram 09/04/2022. 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
== END 2023-03-13 15:58 | disposition short-term general hospital (02) ==
PROVIDERS: Emergency Provider Nurse Practitioner; PCP Family Medicine
DX: R42 Dizziness and giddiness (principal); S80.11XA Contusion of right lower leg, initial encounter; W19.XXXA Unspecified fall, initial encounter; I48.91 Unspecified atrial fibrillation; I50.9 Heart failure, unspecified; I25.10 Atherosclerotic heart disease of native coronary artery without angina pectoris; E78.00 Pure hypercholesterolemia, unspecified; E03.9 Hypothyroidism, unspecified; M47.816 Spondylosis without myelopathy or radiculopathy, lumbar region; M17.12 Unilateral primary osteoarthritis, left knee; Z95.2 Presence of prosthetic heart valve; Z95.5 Presence of coronary angioplasty implant and graft; Z79.01 Long term (current) use of anticoagulants
CPT/HCPCS: 93005; 99215; G0463

== ENCOUNTER 2023-03-13 16:28 | Emergency (ER) | payer MEDICARE, SELFPAY ==
--- NOTE | ~2023-03-13 | CT_ITS ---
EXAMINATION: CT brain wo con DATE: 03/13/2023 22:58 INDICATION: Fall. Dizziness for one week. TECHNIQUE: Computed tomography (CT) of the head was performed without intravenous contrast. The mA wa s adjusted according to patient size. Iterative reconstruction technique was employed. Exam dose: 60 5.33 mGy-cm total exam DLP. COMPARISON: None FINDINGS: Bilateral vertebral artery and carotid siphon internal carotid artery calcifications. There is nonspecific diminished attenuation of the cerebral white matter, likely due to chronic small vessel ischemic changes. No intracranial mass lesion or hemorrhage or cerebrovascular accident, midline shift or mass effect i s detected. No subdural or epidural hematoma is detected. No fracture or bone destruction of the cranial vault. The mastoid air cells and included paranasal si nuses are normally developed and aerated. IMPRESSION: Cerebral atherosclerosis and chronic small vessel ischemic changes of the cerebral white matter No acute intracranial abnormality Reviewed, dictated and finalized at [facility]. Reviewed, dictated and finalized at location [facility]. GER DATABASE
--- NOTE | ~2023-03-13 | CT_ITS ---
EXAMINATION: CTA [facility] DATE: 03/14/2023 01:14 INDICATION: Lower limb edema and bruising. Anticoagulation. TECHNIQUE: Computed tomographic angiography (CTA) of the abdominal, pelvis, and both lower extremitie s was performed with 150 mL Omnipaque-350 intravenous contrast. Automated exposure control and iterat silke reconstruction technique were employed. The dose-length product was 1423.64 mGy-cm. Maximum inten sity projection 3D-reconstructions of the arteries were created by the technologist on a separate wor kstation. COMPARISON: None. FINDINGS: PELVIC VASCULATURE: There is no significant stenosis of the common iliac arteries, internal iliac iliac arteries, or exte rnal iliac arteries. RIGHT LOWER EXTREMITY VASCULATURE: There is no significant stenosis of right common femoral artery, profunda femoris, superficial femora l artery, popliteal artery, tibioperoneal trunk, anterior tibial artery, posterior tibial artery, or peroneal artery. LEFT LOWER EXTREMITY VASCULATURE: There is no significant stenosis of left common femoral artery, profunda femoris, superficial femoral artery, popliteal artery, tibioperoneal trunk, anterior tibial artery, posterior tibial artery, or p eroneal artery. ADDITIONAL FINDINGS: There is a 19 mm peripherally calcified mass in the peritoneum, likely old fat necrosis. There are no pathologically enlarged lymph nodes. There is no free intraperitoneal fluid. There are hematomas in the right posterior thigh musculature. There is severe right trochanteric bursitis, which may also be hematoma. IMPRESSION: 1. Hematomas in the right posterior thigh musculature. Severe right trochanteric bursitis, which may also be hematoma. No active extravasation of contrast. 2. No significant arterial occlusive disease. Reviewed, dictated and finalized at location [facility]. DENT CARE SPEC IMPRESSION: 1. Hematomas in the right posterior thigh musculature. Severe right trochanter ic bursitis, which may also be hematoma. No active extravasation of contrast. 2. No significant arterial occlusive disease.
--- NOTE | ~2023-03-13 | XR_ITS ---
XR femur RT min 2V DATE: 03/13/2023 23:12 INDICATION: Fall. Bruising right mid upper leg to foot TECHNIQUE: AP and lateral views of right femur COMPARISON: None FINDINGS: No fracture, dislocation, avascular necrosis or bone destruction of the right femur is dete cted. IMPRESSION: Negative right femur Reviewed, dictated and finalized at location [facility]. ZINE KEEPER IMPRESSION: Negative right femur
--- NOTE | ~2023-03-13 | XR_ITS ---
XR foot RT min 3V DATE: 03/13/2023 23:12 INDICATION: Fall. TECHNIQUE: 3 views COMPARISON: None FINDINGS: There is hallux valgus and bunion deformity. There is mild osteoarthritis at the first meta tarsophalangeal joint. Prominent plantar and posterior calcaneal enthesopathy. No fracture or dislocation, periosteal reaction or bone destruction is detected. IMPRESSION: Hallux valgus and bunion deformity Osteoarthritis at first metatarsophalangeal joint Plantar and posterior calcaneal enthesopathy Reviewed, dictated and finalized at location [facility]. H DRIER
--- NOTE | ~2023-03-13 | CT_ITS ---
EXAMINATION: CT lumbar spine wo con DATE: 03/13/2023 23:20 INDICATION: Low back pain after fall TECHNIQUE: Computed tomography (CT) of the lumbar spine was performed without intravenous contrast. Davidson sanchez dose-length product was 1094.84 mGy-cm. Automated exposure control and iterative reconstruction te mirandadeborahque were employed. COMPARISON: None FINDINGS: Vertebral body heights are maintained. No acute fracture or traumatic malalignment. There i s severe loss of disc height at L5-S1 and L3-4. There is moderate loss of disc height with vacuum phe nomena at L4-5 and L5-S1. There is advanced multilevel facet and uncinate hypertrophy with levoscolio sis. There is grade 1 degenerative spondylolisthesis at L4-5. There are gallstones. No significant paraspinal soft tissue abnormality. IMPRESSION: 1. No acute abnormality of the lumbar spine. 2: Severe lumbar spondylosis with levoscoliosis. 3: Cholelithiasis. Reviewed, dictated and finalized at location A. APEUTIC RIDING INSTRUCTOR
--- NOTE | ~2023-03-13 | XR_ITS ---
XR tibia fibula RT 2V DATE: 03/13/2023 23:12 INDICATION: Fall. TECHNIQUE: AP and lateral views of tibia and fibula COMPARISON: None FINDINGS: Plantar and posterior calcaneal enthesopathy are noted. No fracture or dislocation, periosteal reaction or bone destruction of the tibia or fibula. The ankle mortise is intact. Mild right knee osteoarthritis. IMPRESSION: No fracture or dislocation Reviewed, dictated and finalized at location A. HER MACHINE OPERATOR IMPRESSION: No fracture or dislocation
--- NOTE | ~2023-03-13 | XR_ITS ---
XR chest 2V DATE: 03/13/2023 22:16 INDICATION: Dizziness. Atrial fibrillation. Fall. TECHNIQUE: AP and lateral views COMPARISON: 12/29/2022 PA and lateral chest FINDINGS: Status post sternotomy and aortic valve replacement. Cardiomegaly. No pulmonary infiltrate or consolidation, pleural effusion or pulmonary vascular congestion or pneumo thorax is detected. Old healed left clavicular shaft fracture. Mild thoracic scoliosis. IMPRESSION: Status post sternotomy and aortic valve replacement Cardiomegaly No active pulmonary disease Reviewed, dictated and finalized at location A. INE LOAD CLERK
[2023-03-13 17:03] VITALS: BP 122/55; PULSE 79; RESP 16; TEMP 36.5; O2SAT 98
[2023-03-13 20:43] VITALS: BP 162/56; PULSE 85; RESP 18; O2SAT 100
[2023-03-13 21:24] VITALS: BP 137/76; PULSE 85; RESP 16; O2SAT 99
[2023-03-13 21:27] VITALS: PULSE 75
[2023-03-13 21:29] VITALS: BP 137/76; PULSE 80; RESP 16; O2SAT 99
--- NOTE | 2023-03-13 22:02 | ECG_ITS ---
Measurements Intervals [place] Rate: 79 P: CO: 0 QRS: -53 QRSD: 158 T: 114 QT: 418 QTc: 481 Interpretive Statements ATRIAL FIBRILLATION MARKED LEFT AXIS DEVIATION [QRS AXIS < -30] LEFT BUNDLE BRANCH BLOCK [120+ ms QRS DURATION, 80+ ms Q/S IN V1/V2, 85+ ms R IN I/aVL/V5/V6] COMPARED TO ECG 03/13/2023 15:31:36 NO SIGNIFICANT CHANGES Electronically Signed On 03-14-2023 17:01:47 EDGE BANDING OFF BEARER by Fiorella Cedillo M.D.
--- NOTE | 2023-03-13 22:50 | ED.DIZZY ---
HPI - Dizziness General Chief Complaint: Dizziness Stated Complaint: dizzy, fall 1 week ago Time Seen by Provider: 03/13/23 21:39 Source: patient Mode of arrival: EMS Limitations: no limitations History of Present Illness HPI Narrative: This is a 88 year old female that presents to the ER for right leg pain and swelling. Ongoing over the last week. Reports she fell one week ago. Reports getting her cane caught on her nightgown causing her to fall. She does not believe she hit her head. She did not lose consciousness. Reports she has had worsening right lower extremity pain, bruising and swelling. Was seen at urgent care and sent to the ER for further evaluation. Reports some lightheadedness. Denies chest pain or shortness of breath. Related Data Home Medications Medication Instructions Recorded Confirmed calcium carbonate 600 mg-vitamin 600 cap PO DAILY 02/27/19 03/13/23 D3 12.5 mcg (500 unit) capsule (Calcium 600 with Vitamin D3) loratadine 10 mg tablet (Allergy 10 mg PO DAILY PRN allergy symptoms 09/11/19 03/13/23 Relief (loratadine)) multivitamin (Daily Multi-Vitamin 1 tablet PO DAILY 09/20/19 03/13/23 tablet) omega-3 fatty acids 1,000 mg 1,200 mg PO DAILY 09/20/19 03/13/23 capsule (Fish Oil Concentrate) melatonin 3 mg capsule 3 mg PO QHS PRN Insomnia 07/31/20 03/13/23 famotidine 20 mg tablet 20 mg PO HS 12/29/22 03/13/23 apixaban 5 mg tablet (Eliquis) 5 mg PO BID 03/01/23 03/13/23 Allergies Allergy/AdvReac Type Severity Reaction Status Date / Time nitrofurantoin Allergy Unknown Unknown Verified 03/13/23 21:32 phenazopyridine Allergy Unknown Unknown Verified 03/13/23 21:32 Review of Systems Review of Systems: CONSTITUTIONAL: Denies fever EYES: Denies visual changes CARDIOVASCULAR: Reports edema. Denies chest pain RESPIRATORY: Denies dyspnea. MUSCULOSKELETAL: Reports joint pain and myalgia. Denies back pain NEUROLOGIC: Denies numbness, or weakness. All systems reviewed & are unremarkable except as noted in HPI and below PMFSH Past Medical History Medical History Acute congestive heart failure Acute gastritis Acute non-recurrent maxillary sinusitis Allergic conjunctivitis Anxiety At high risk for falls At moderate risk for fall Atrial fibrillation BMI 34.0-34.9,adult BMI 36.0-36.9,adult BMI 38.0-38.9,adult Breast cancer screening by mammogram mammogram normal 05/06/2021. Normal mammogram 09/04/2022. 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 Urinary frequency volume chart completed Urinary symptom or sign UTI (urinary tract infection) Vaginal discharge Surgical History Surgical History Aortic valve replaced H/O: hysterectomy History of carpal tunnel surgery History of open heart surgery Hx of tubal ligation S/P coronary artery stent placement Family History Family History Father Hypertension Family history of elevated blood lipids, Onset Age: 83 Patient's father is , Onset Age: 82 Family history of cardiovascular disease Family history of Parkinson's disease Mother Hypertension Family history of elevated blood lipids Patient's mother is Family history of malignant neoplasm, Onset Age: 68 Sibling Patient's sister is , Onset Age: 85 Patient's brother is , Onset Age: 87 Family
[2023-03-13 22:53] LABS: Basophils Percent Auto 0.5 % (0.2-1.2); Eosinophils Absolute Auto 0.2 K/mm3 (0-0.3); Eosinophils Percent Auto 3.5 % (0-4.4); Hematocrit 33.6 % (37.0-47.0); Hemoglobin 10.4 g/dL (12.0-15.0); Immature Granulocyte Absolute 0.01 K/mm3 (0.00-0.031); Immature Granulocyte Percent A 0.2 % (0-0.5); Lymphocytes Absolute Auto 1.54 K/mm3 (0.9-3.2); Lymphocytes Percent Auto 23.4 % (18.3-44.2); Mean Corpuscular Hemoglobin 30.2 pg (26-34); Mean Corpuscular Volume 97.7 fl (80-100); Mean Platelet Volume 10.8 fl (7.4-10.4); Monocytes Absolute Auto 0.7 K/mm3 (0.1-0.6); Monocytes Percent Auto 10.2 % (2.6-8.5); Neutrophils Absolute Auto 4.1 K/mm3 (1.3-6.7); Neutrophils Percent Auto 62.2 % (45.5-73.1); Platelet Count Result 210 k/mm3 (150-375); Red Blood Count 3.44 M/mm3 (4.2-5.4); Red Cell Distribution Width 15.4 % (11.5-14.5); White Blood Count 6.6 K/mm3 (4.5-10.0)
[2023-03-13 23:02] LABS: Alanine Aminotransferase 27 U/L (6-35); Albumin Level 3.8 g/dL (3.5-5.1); Alkaline Phosphatase 59 U/L (38-126); Anion Gap 6 mmol/L (8-16); Aspartate Amino Transferase 43 U/L (14-36); Bilirubin,Total 1.9 mg/dL (0.2-1.3); Blood Urea Nitrogen 16 mg/dL (7-17); Calcium 8.5 mg/dL (8.4-10.2); Carbon Dioxide 27 mmol/L (22-30); Chloride 105 mmol/L (98-107); Estimated CRCL calculation 64 ml/min; Estimated Glomerular Filt Rate > 60; Glucose 92 mg/dL (65-110); Potassium 3.9 mmol/L (3.4-5.0); Sodium 138 mmol/L (137-145)
[2023-03-13 23:30] LABS: INR 1.4; Prothrombin Time 17.7 Seconds (11.1-14.7)
[2023-03-13 23:31] LABS: Partial Thromboplastin Time 33.6 SECONDS (22.3-36.8)
[2023-03-13 23:44] LABS: Creatine Kinase 78 U/L (30-135)
[2023-03-14 00:19] LABS: Appearance Urine Clear (Clear); Bilirubin Urine Negative (Negative); Blood Urine Negative (Negative); Color Urine Yellow (Yellow); Glucose Urine UA Negative (Negative); Ketones Urine Trace mg/dL (Negative); Leukocyte Esterase Ur Negative LEU/UL (Negative); Nitrate Urine Negative (Negative); Protein Urine Negative (Negative); Specific Grav Ur 1.009 (1.001-1.035); Urobilinogen Urine 0.2 mg/dL (<2.0)
[2023-03-14 00:21] LABS: Add Urine Microscopic? NO
[2023-03-14 02:10] VITALS: BP 147/53; PULSE 77; RESP 15; O2SAT 100
[2023-03-14 02:42] VITALS: BP 147/53; PULSE 66; RESP 17; O2SAT 99
[2023-03-14 05:11] VITALS: BP 146/77; PULSE 89; RESP 17; O2SAT 99
== END 2023-03-14 05:11 | disposition home or self-care (01) ==
PROVIDERS: Emergency Provider Physician Assistant; PCP Family Medicine
DX: S70.11XA Contusion of right thigh, initial encounter (principal); I48.91 Unspecified atrial fibrillation; I50.9 Heart failure, unspecified; E03.9 Hypothyroidism, unspecified; M19.90 Unspecified osteoarthritis, unspecified site; Z87.440 Personal history of urinary (tract) infections; I25.10 Atherosclerotic heart disease of native coronary artery without angina pectoris; W01.0XXA Fall on same level from slipping, tripping and stumbling without subsequent striking against object, initial encounter
CPT/HCPCS: 36415; 70450; 71046; 72131; 73552; 73590; 73630; 73706; 80053; 81003; 82550; 85025; 85610; 85730; 93005; 99284; Q9967

== ENCOUNTER 2024-01-11 15:17 | Outpatient (CLI) | payer MEDICARE, SELFPAY ==
--- NOTE | ~2024-01-11 | MM_ITS ---
EXAMINATION: MM screening diandra BI w guerda HISTORY: Screening TECHNIQUE: Craniocaudal and mediolateral oblique 3-D tomosynthesis images were obtained and synthetic 2-D images were generated. CAD analysis was submitted and interpreted. COMPARISON: Comparison to multiple prior studies sequentially, with oldest reviewed study dated 02/20. BREAST PARENCHYMAL COMPOSITION: Not dense: There are scattered areas of fibroglandular density. FINDINGS: There is no evidence of suspicious mass, calcification, or architectural distortion to sugg est malignancy in either breast. There has been no suspicious interval change. IMPRESSION: 1. No mammographic evidence of malignancy. 2. Recommend routine screening mammography in one year. BI-RADS Category 1: Negative Reviewed, dictated and finalized at location B.
== END 2024-01-11 15:18 | disposition home or self-care (01) ==
PROVIDERS: PCP Family Medicine; Visit Provider Nurse Practitioner Family
DX: Z12.31 Encounter for screening mammogram for malignant neoplasm of breast (principal)
CPT/HCPCS: 77063; 77067